=== PATIENT | female | born 1990 | race Caucasian/White ===

== ENCOUNTER 2018-01-01 18:54 | Outpatient (CLI) | END 2018-01-01 23:02 | disposition home or self-care (01) ==

== ENCOUNTER 2018-01-02 21:00 | Outpatient (CLI) | END 2018-01-03 01:35 | disposition home or self-care (01) ==

== ENCOUNTER 2018-01-22 04:04 | Inpatient (IN) | END 2018-01-29 20:15 | disposition home or self-care (01) | DRG 766 ==